=== PATIENT | female | born 1975 | race Caucasian/White ===

== ENCOUNTER 2017-04-02 19:37 | Inpatient (IN) | payer MEDICAID ==
[2017-04-02 19:38] VITALS: BMI 38.4
--- NOTE | 2017-04-02 20:10 | C.PDOC ---
History Of Present Illness Patient presents to the ER with a complaint of dizziness and spinning sensation that worsens with head movements when either laying down or standing up. Patient denies any vision changes, nausea, vomiting, or trauma. Time Seen by Provider: 04/02/17 20:10 Chief Complaint (Nursing): Dizziness/Lightheaded History Per: Patient History/Exam Limitations: no limitations Onset/Duration Of Symptoms: Hrs Current Symptoms Are (Timing): Still Present Number Of Syncopal Episodes: 1 Activity At Onset Of Symptoms: Standing Associated Symptoms Preceding Syncopal Episode: Lightheadedness, Vertigo, Vertigo Worse With Change In Head Position Seizure Or Post-ictal Symptoms: None Severity: Mild Pain Scale Rating Of: 2 Recent travel outside of the [place]: No - Symptoms Of CVA Associated Symptoms: denies: Impaired Speech, Seizure Activity, New Vision Deficit(Left), New Vision Deficit(Right), Decreased Ability To Walk, New Confusion Recent Aspirin Use: No Current Coumadin Use?: No Recent Head Trauma: No Past Medical History Reviewed: Historical Data, Nursing Documentation, Vital Signs Vital Signs: Last Vital Signs Temp 98.4 F 04/02/17 19:47 Pulse 81 04/02/17 21:53 Resp 14 04/02/17 19:47 BP 147/82 04/02/17 19:47 Pulse Ox 99 04/02/17 21:40 - Medical History PMH: HTN (PRIOR TO BARIATRIC SX), Hypercholesterolemia, Pneumonia (jan 2014 never hospitalized) Surgical History: Cholecystectomy, Endoscopy - [facility] Procedures ESOPHAGOGASTRODUODENOSCOPY [EGD] W/CLOSED BIOPSY (03/30/14) LAPAROSCOPIC GASTROENTEROSTOMY (08/10/14) NEBULIZER THERAPY (03/30/14) OTHER GASTROSCOPY (08/10/14) Family History: States: No Known Family Hx - Social History Hx Tobacco Use: No Hx Alcohol Use: No Hx Substance Use: No - Immunization History Hx Tetanus Toxoid Vaccination: No Hx Influenza Vaccination: No Hx Pneumococcal Vaccination: No Review Of Systems Eyes: Negative for: Vision Change ENT: Negative for: Throat Pain Cardiovascular: Negative for: Chest Pain Respiratory: Negative for: Shortness of Breath Gastrointestinal: Negative for: Nausea, Vomiting Genitourinary: Negative for: Dysuria Musculoskeletal: Negative for: Back Pain Skin: Negative for: Rash, Lesions, Jaundice, Bruising Neurological: Positive for: Dizziness, Other (Spinning sensation). Negative for : Weakness Psych: Negative for: Anxiety Physical Exam - Physical Exam Appears: Well, Non-toxic Skin: Warm, Dry Head: Atraumatic Eye(s): bilateral: Normal Inspection, PERRL, EOMI, Other (No nystagmus) Ear(s): Bilateral: Other (No acute abnormalities) Oral Mucosa: Moist Neck: Supple Chest: Symmetrical, No Tenderness Cardiovascular: Rhythm Regular Respiratory: No Rales, No Rhonchi, No Wheezing Gastrointestinal/Abdominal: Soft, No Tenderness, No Distention Rectal: Normal Exam (done after the HB results), Heme Negative Extremity: Normal ROM Extremity: Bilateral: Atraumatic, Normal Color And Temperature Neurological/Psych: Oriented x3, Normal Speech, Normal Cognition, No Romberg, Other (No focal deficits.) Gait: Unsteady ED Course And Treatment - Laboratory Results Result Diagrams: 04/02/17 20:40 04/02/17 20:40 O2 Sat by Pulse Oximetry: 99 (Room air) Pulse Ox Interpretation: Normal Progress Note: Head CT w/o contrast, urinalysis, and blood work ordered. Antivert PO, zofran IVP, and IV fluids administered. upon speaking with the pt about her hb of 7, pt states she does have very heavy periods, and that yesterday almost passed out., No cp or palpitations. HEr dizziness gets worse during her menses Disposition Discussed With DrCeleste: Calderon Morales Jr. Comment: accepted the pt on his service and took over the care at 10:40PM Doctor Will See Patient In The: ED Counseled Patient/Family Regarding: Studies Performed, Diagnosis - Disposition Disposition: HOSPITALIZED Disposition Time: 20:10 Condition: FAIR - POA Present On Arrival: None - Clinical Impression Clinical Impression: Dizziness, Syncope, Dysfunctional uterine bleeding - Scribe Statement The provider has reviewed the documentation as recorded by the Scribe Thomas Cardenas All medical record entries made by the Scribe were at my direction and personally dictated by me. I have reviewed the chart and agree that the record accurately reflects my personal performance of the history, physical exam, medical decision making, and the department course for this patient. I have also personally directed, reviewed, and agree with the discharge instructions and disposition. Decision To Admit - Pt Status Changed To: Hospital Disposition Of: Inpatient - Admit Certification Admit to Inpatient:: After my assessment, the patient will require hospitalization for at least two midnights. This is because of the severity of symptoms shown, intensity of services needed, and/or the medical risk in this patient being treated as an outpatient. - InPatient: Physician Admission Certification: I certify that this patient requires 2 or more midnights of care for the following reason:: After my assessment, the patient will require hospitalization for at least two midnights. This is because of the severity of symptoms shown, intensity of services needed, and/or the medical risk in this patient being treated as an outpatient. - . Bed Request Type: Telemetry Admitting Physician: Calderon Morales Jr. Patient Diagnosis: Dizziness, Syncope, Dysfunctional uterine bleeding
[2017-04-02] MEDS ORDERED: Sodium Chloride 0.9% 1,000 ML IV ONE (20:22)
[2017-04-02] MEDS ORDERED: Sodium Chloride 0.9% 1,000 ML ONE (20:31)
[2017-04-02 20:48] LABS: BASO % 0.3 % (0.0-2.0); EOS # 0.1 K/uL (0.0-0.7); EOS % 1.3 % (0.0-4.0); HEMATOCRIT 25.2 % (34.0-47.0); LYMPH # 2.4 K/uL (1.0-4.3); LYMPH % 30.5 % (20.0-40.0); MEAN CORPUSCULAR HEMOGLOBIN 15.8 pg (27.0-31.0); MONO # 0.7 K/uL (0.0-0.8); MONO % 9.4 % (0.0-10.0); RED CELL DISTRIBUTION WIDTH 19.5 % (11.5-14.5); WHITE BLOOD COUNT 7.7 K/uL (4.8-10.8)
[2017-04-02 20:55] LABS: CHLORIDE 101 mmol/L (98-107); POTASSIUM 3.7 mmol/L (3.6-5.2); SODIUM 137 mmol/L (132-148)
[2017-04-02 20:58] LABS: CARBON DIOXIDE 26 mmol/L (22-30); GFR AFRICAN-AMERICAN > 60
[2017-04-02 20:59] LABS: BLOOD UREA NITROGEN 13 mg/dL (7-17); CALCIUM 9.1 mg/dl (8.6-10.4); GLUCOSE,RANDOM 88 mg/dL (65-105)
[2017-04-02 21:02] LABS: MEAN CELL VOLUME 56.4 fL (81.0-99.0)
[2017-04-02 21:14] LABS: RBC URINE 14 /hpf (0-3); URINE BACTERIA MOD (<OCC); URINE BILIRUBIN NEGATIVE (NEGATIVE); URINE BLOOD NEGATIVE (NEGATIVE); URINE COLOR Straw (YELLOW); URINE GLUCOSE (UA) NORMAL (Normal); URINE KETONE NEGATIVE (NEGATIVE); URINE LEUKOCYTE ESTERASE 3+ Leu/uL (Negative); URINE PROTEIN NEGATIVE (NEGATIVE); URINE UROBILINOGEN NORMAL mg/dL (0.2-1.0); WBC URINE 24 /hpf (0-5)
--- NOTE | 2017-04-02 23:15 | CP.PCM.HP ---
History of Present Illness - History of Present Illness History of Present Illness: CC: Dizziness/Lightheaded HPI: 41F with PMHx Vertigo, HTN, HLD, DM - presents c/o a syncopal episode yesterday 04/01, with persistent headache, light headedness, and dizziness since syncopizing. She was cleaning her friends apartment, felt very dizzy upon standing, and 1 minute later began to feel lightheaded/weak, causing her to "faint." Her friend witnessed this, told her she was unresponsive for 2-3 minutes, and did not seize, shake, or hit her head. After awakening, she had a headache, lightheadedness, and dizziness, all which have persisted. At that time she was not diaphoretic and did not feel as if the room was spinning. This morning, she began to feel nauseous due to the dizziness. 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 She denies change in vision, impaired speech, seizure, confusion, f/c, trauma, diaphoresis, chest pain, palpitations, SOB, vomiting, d/c, recent travel or sick contacts. She also c/o persistent burning with urination for 1 month, treated by her supervisor ac[employer]ical tile carpent[employer] at that time with antibiotics, however it is unresolved. She denies frequent or recurrent UTI's. Her LMP was 03/08/17 and she reports a history of heavy flow. PMHx: Vertigo, HTN, HLD, DM, Pneumonia (jan 2014 never hospitalized) PSHx: Cholecystectomy '07, Endoscopy '14, Bunionectomy '13 Meds: none Allergies: Codeine (passes out), carrots FamHx: Mom- HTN, DM, HLD; Dad- of [place] at young age SocHx: Denies alcohol, tobacco, illicit drug use; Lives in apartment with family ; Works in inventory at a store PMD: Dr. Morales Present on Admission - Present on Admission Any Indicators Present on Admission: No Review of Systems - Constitutional Constitutional: Headache, Weakness. absent: Chills, Excessive Sweating, Fever - EENT Eyes: absent: Blurred Vision, Change in Vision Ears: Disequilibrium, Dizziness. absent: Ear Discharge, Ear Pain Nose/Mouth/Throat: absent: Nasal Congestion, Nasal Discharge - Cardiovascular Cardiovascular: absent: Chest Pain, Chest Pain at Rest, Diaphoresis, Dyspnea - Respiratory Respiratory: absent: Cough, Dyspnea, Hemoptysis, Dyspnea on Exertion - Gastrointestinal Gastrointestinal: absent: Cramping, Diarrhea, Dyspepsia, Hematochezia - Genitourinary Genitourinary: Dysuria. absent: Difficulty Urinating, Pyuria, Freq UTI - Reproductive: Female Reproductive:Female: Heavy Menses - Musculoskeletal Musculoskeletal: absent: Arthralgias, Back Pain, Numbness, Tingling - Integumentary Integumentary: absent: Bleeding Lesions, Change in Hair - Neurological Neurological: absent: Abnormal Gait, Abnormal Hearing - Psychiatric Psychiatric: absent: Anhedonia, Anxiety - Endocrine Endocrine: absent: Polydipsia, Polyphagia, Polyuria - Hematologic/Lymphatic Hematologic: absent: Easy Bleeding, Easy Bruising Past Patient History - Infectious Disease Hx of Infectious Diseases: None - Past Medical History & Family History Past Medical History?: Yes - Past Social History Smoking Status: Never Smoked - CARDIAC Hx Hypercholesterolemia: Yes Hx Hypertension: Yes (PRIOR TO BARIATRIC SX) - PULMONARY Hx Pneumonia: Yes (jan 2014 never hospitalized) - NEUROLOGICAL Hx Neurological Disorder: No - HEENT Hx HEENT Problems: No - RENAL Hx Chronic Kidney Disease: No - ENDOCRINE/METABOLIC Hx Endocrine Disorders: No - HEMATOLOGICAL/ONCOLOGICAL Hx Blood Disorders: No - INTEGUMENTARY Hx Dermatological Problems: No - MUSCULOSKELETAL/RHEUMATOLOGICAL Hx Falls: No - GASTROINTESTINAL Hx Gastrointestinal Disorders: Yes Hx Gastroesophageal Reflux: Yes - GENITOURINARY/GYNECOLOGICAL Hx Genitourinary Disorders: Yes Other/Comment: irregular menses - PSYCHIATRIC Hx Substance Use: No - SURGICAL HISTORY Hx Cholecystectomy: Yes - ANESTHESIA Hx Anesthesia Reactions: Yes (vomitting) Meds Allergies/Adverse Reactions: Allergies Allergy/AdvReac Type Severity Reaction Status Date / Time codeine Allergy Verified 04/02/17 19:50 CARROTS Allergy RASH Uncoded 10/23/15 09:38 Physical Exam - Constitutional Appears: Non-toxic, No Acute Distress - Head Exam Head Exam: ATRAUMATIC, NORMAL INSPECTION - Eye Exam Eye Exam: EOMI, Normal appearance, PERRL - ENT Exam ENT Exam: Mucous Membranes Moist - Respiratory Exam Respiratory Exam: Clear to Auscultation Bilateral, NORMAL BREATHING PATTERN. absent: Wheezes - Cardiovascular Exam Cardiovascular Exam: REGULAR RHYTHM, +S1, +S2 - GI/Abdominal Exam GI & Abdominal Exam: Normal Bowel Sounds, Soft. absent: Distended, Firm, Tenderness Additional comments: well healed scars from laparoscopic surgery - Exam Exam: absent: Bladder Distension - Extremities Exam Extremities exam: Positive for: normal inspection. Negative for: pedal edema, tenderness - Back Exam Back exam: NORMAL INSPECTION. absent: CVA tenderness (L), CVA tenderness (R) - Neurological Exam Neurological exam: Alert, CN II-XII Intact, Oriented x3, Reflexes Normal Additional comments: -mildly unsteady gate -negative rhomberg - Psychiatric Exam Psychiatric exam: Normal Affect, Normal Mood - Skin Skin Exam: Dry, Intact, Normal Color, Warm Results - Vital Signs Recent Vital Signs: Last Vital Signs Temp 98.4 F 04/02/17 19:47 Pulse 81 04/02/17 21:53 Resp 14 04/02/17 19:47 BP 147/82 04/02/17 19:47 Pulse Ox 99 04/02/17 22:43 - Labs Result Diagrams: 04/02/17 20:40 04/02/17 20:40 Labs: Laboratory Results - last 24 hr 04/02/17 04/02/17 04/02/17 20:40 20:40 20:40 WBC 7.7 RBC 4.47 Hgb 7.1 L D Hct 25.2 L MCV 56.4 L D MCH 15.8 L MCHC 28.0 L RDW 19.5 H Plt Count 283 MPV 9.0 Neut % (Auto) 58.5 Lymph % (Auto) 30.5 Rutherford % (Auto) 9.4 Eos % (Auto) 1.3 Baso % (Auto) 0.3 Neut # 4.5 Lymph # 2.4 Rutherford # 0.7 Eos # 0.1 Baso # 0.0 Sodium 137 Potassium 3.7 Chloride 101 Carbon Dioxide 26 Anion Gap 14 BUN 13 Creatinine 0.7 Est GFR ( Amer) > 60 Est GFR (Non-Af Amer) > 60 Random Glucose 88 Calcium 9.1 Urine Color Straw Urine Clarity Hazy Urine pH 5.0 Ur Specific Katy 1.003 Urine Protein Negative Urine Glucose (UA) Normal Urine Ketones Negative Urine Blood Negative Urine Nitrate Negative Urine Bilirubin Negative Urine Urobilinogen Normal Ur Leukocyte Esterase 3+ H Urine WBC (Auto) 24 H Urine RBC (Auto) 14 H Ur Squamous Epith Cells 8 H Urine Bacteria Mod H Urine HCG, Qual Negative Stool Occult Blood 04/02/17 21:50 WBC RBC Hgb Hct MCV MCH MCHC RDW Plt Count MPV Neut % (Auto) Lymph % (Auto) Rutherford % (Auto) Eos % (Auto) Baso % (Auto) Neut # Lymph # Rutherford # Eos # Baso # Sodium Potassium Chloride Carbon Dioxide Anion Gap BUN Creatinine Est GFR ( Amer) Est GFR (Non-Af Amer) Random Glucose Calcium Urine Color Urine Clarity Urine pH Ur Specific Kat[place] Urine Protein Urine Glucose (UA) Urine Ketones Urine Blood Urine Nitrate Urine Bilirubin Urine Urobilinogen Ur Leukocyte Esterase Urine WBC (Auto) Urine RBC (Auto) Ur Squamous Epith Cells Urine Bacteria Urine HCG, Qual Stool Occult Blood Negative Assessment & Plan - Assessment and Plan (Free Text) Assessment: Syncope -Patient reports a history of untreated Vertigo, diagnosed by neurology in 2009. -CT Head - negative -f/u EKG Vertigo -Patient reports a history of untreated Vertigo, diagnosed by neurology in 2009. -Dizziness resolved after Meclizine 50mg in ED. -HOLD Meclizine 25mg PO qd until further assessment. -Fall precautions. Anemia -Hgb 7.1 -f/u Fe, TIBC, %sat, ferritin, B12, folate -f/u CT Abd/Pelv w/contrast -Stool occult negative Menorrhagia -pt reports a long standing history of heavy menstrual flow -see's her supervisor ac[employer]ical tile carpent[employer] regularly -likely cause of anemia UTI -Dysuria [id number], however no suprapubic tenderness -UA: 3+leuk est, 24WBC, 14RBC, 8sq epithelial cells, bact moderate -f/u Urine Culture -Start Rocephin 1Gm IVPB qd after UC. Hx Hypokalemia -K 3.7 on admission -Patient reports taking Potassium 50mg PO qd -Start Kdur 40mg PO qd Hx Diabetes -controlled via diet/exercise s/p bariatric surgery '14 -f/u A1c Hx Hypertension -BP 147/82 on admission. -controlled via diet/exercise s/p bariatric surgery '14 -Pt does not take medication. -f/u TSH, free T4, Vit D Hx Hyperlipidemia -controlled via diet/exercise s/p bariatric surgery ' -f/u lipid panel Prophylaxis -SCDs -VTE prophylaxis C/I -Pepcid 40mg PO qd -Zofran 4mg IVP Q8H PRN nausea - Date & Time Date: 04/02/17 Time: 23:20
[2017-04-03] MEDS ORDERED: Iohexol 350mg/ml 100 ML ONE (00:44)
[2017-04-03 00:56] LABS: IRON 32 ug/dL (37-170); TOTAL PROTEIN 6.9 g/dL (6.3-8.3)
[2017-04-03 00:57] LABS: BILIRUBIN,DIRECT 0.5 mg/dL (0.0-0.4); BILIRUBIN,TOTAL 0.7 mg/dL (0.2-1.3); MAGNESIUM 1.9 mg/dL (1.6-2.3); PHOSPHOROUS 3.2 mg/dL (2.5-4.5)
[2017-04-03 01:35] LABS: THYROID STIMULATING HORMONE 2.79 mIU/L (0.46-4.68)
[2017-04-03 02:09] LABS: FOLATE 18.4 ng/mL
--- NOTE | 2017-04-03 03:58 | CT ---
EXAM: CT Abdomen and Pelvis With Intravenous Contrast CLINICAL HISTORY: 41 years old, female; Pain; Abdominal pain; Prior surgery; Additional info: Hb 7, menometrorhagia TECHNIQUE: Axial computed tomography images of the abdomen and pelvis with intravenous contrast. This CT exam was performed using one or more of the following dose reduction techniques: automated exposure control, adjustment of the mA and/or kV according to patient size, and/or use of iterative reconstruction technique. Coronal and sagittal reformatted images were created and reviewed. CONTRAST: 100 mL of [id number] administered intravenously. EXAM DATE/TIME: 04/03/2017 12:21 AM COMPARISON: No relevant prior studies available. FINDINGS: Cholecystectomy clips are present. The liver is normal. The spleen is normal. The pancreas is normal. No hydronephrosis or perinephric stranding. Evidence of gastric surgery. Moderate amount of stool within the right colon. No evidence of appendicitis. There is a round 2 cm hypodense structure in the endometrial cavity. It may represent a focal hematoma. Enhancing endometrial mass would also be possible such as pedunculated fibroid. Ovarian follicles are noted more prominent on the left. No significant free fluid. IMPRESSION: Rounded hyperdense structure in the endometrial cavity as above that could be better evaluated with pelvic ultrasound.
[2017-04-03 07:30] LABS: BASO % 0.6 % (0.0-2.0); EOS # 0.1 K/uL (0.0-0.7); EOS % 1.9 % (0.0-4.0); HEMATOCRIT 23.6 % (34.0-47.0); LYMPH # 2.5 K/uL (1.0-4.3); LYMPH % 45.2 % (20.0-40.0); MEAN CELL VOLUME 56.3 fL (81.0-99.0); MEAN CORPUSCULAR HGB CONC 28.4 g/dL (33.0-37.0); MEAN PLATELET VOLUME 9.1 fL (7.2-11.7); MONO # 0.6 K/uL (0.0-0.8); MONO % 10.3 % (0.0-10.0); NRBC % 0.1 % (0.0-2.0); RED CELL DISTRIBUTION WIDTH 19.6 % (11.5-14.5); WHITE BLOOD COUNT 5.5 K/uL (4.8-10.8)
[2017-04-03 07:53] LABS: CHLORIDE 104 mmol/L (98-107); SODIUM 138 mmol/L (132-148)
[2017-04-03 07:54] LABS: POTASSIUM 3.8 mmol/L (3.6-5.2)
[2017-04-03 07:55] LABS: GFR AFRICAN-AMERICAN > 60
[2017-04-03 07:56] LABS: ALKALINE PHOSPHATASE 61 U/L (38-126); AST/SGOT 22 U/L (14-36); BILIRUBIN,TOTAL 0.6 mg/dL (0.2-1.3); CARBON DIOXIDE 25 mmol/L (22-30); TOTAL PROTEIN 6.6 g/dL (6.3-8.3)
[2017-04-03 07:57] LABS: ALT/SGPT 22 U/L (9-52); BLOOD UREA NITROGEN 9 mg/dL (7-17); CALCIUM 8.3 mg/dl (8.6-10.4); GLUCOSE,RANDOM 80 mg/dL (65-105); PHOSPHOROUS 3.5 mg/dL (2.5-4.5)
--- NOTE | 2017-04-03 08:15 | CT ---
PROCEDURE: CT HEAD WITHOUT CONTRAST. HISTORY: dizziness COMPARISON: None available. TECHNIQUE: Axial computed tomography images were obtained through the head/brain without intravenous contrast. Radiation dose: Total exam DLP = 747 mGy-cm. This CT exam was performed using one or more of the following dose reduction techniques: Automated exposure control, adjustment of the mA and/or kV according to patient size, and/or use of iterative reconstruction technique. FINDINGS: HEMORRHAGE: No intracranial hemorrhage. BRAIN: No mass effect or edema. No atrophy or chronic microvascular ischemic changes. VENTRICLES: Unremarkable. No hydrocephalus. CALVARIUM: Unremarkable. PARANASAL SINUSES: Unremarkable as visualized. No significant inflammatory changes. MASTOID AIR CELLS: Unremarkable as visualized. No inflammatory changes. OTHER FINDINGS: None. IMPRESSION: No acute intracranial abnormality. If focal neurologic deficit persists, consider MRI. These findings were preliminarily reported at 10:13 p.m. on 04/02/[address] Alfonzo Erickson from [facility].
[2017-04-03 08:35] VITALS: O2SAT 98
[2017-04-03] MEDS ORDERED: Ferric Sodium Gluconat Complex 62.5 mg/5 ml Vial IVPB SCH (10:00)
[2017-04-03] MEDS ORDERED: Potassium Chloride 20 mEq ER Tab PO SCH (10:00)
--- NOTE | 2017-04-03 10:45 | CP.PCM.PN ---
<JemmasunshineJeff simons - Last Filed: 04/03/17 12:25> Subjective - Date & Time of Evaluation Date of Evaluation: 04/03/17 Time of Evaluation: 07:00 - Subjective Subjective: PGY-1 Medicine Progress Note for Dr. Morales Patient seen and examined at bedside. No acute event overnight. Patient is lying in bed comfortably. Patient is a Jehovah witness, so she is refusing all blood products. She states her dizziness has improved. She is tolerating diet. IV ferrlicet started for anemia. Denies fever/chills, cp, sob, palpitations, abd pain, n/v/d. Objective - Vital Signs/Intake and Output Vital Signs (last 24 hours): Temp Pulse Resp BP Pulse Ox 97.7 F 70 18 103/65 98 04/03/17 08:33 04/03/17 08:33 04/03/17 08:33 04/03/17 08:33 04/03/17 08:33 Intake and Output: 04/03/17 04/03/17 06:59 18:59 Intake Total 1500 Balance 1500 - Medications Medications: Current Medications Famotidine (Pepcid) 40 mg PO DAILY [facility] Last Admin: 04/03/17 10:01 Dose: 40 mg Ferric Sodium Gluconate Complex (Ferrlecit) 125 mg IVPB DAILY [facility] Stop: 04/11/17 10:01 Ceftriaxone Sodium 1 gm/ (Sodium Chloride) 100 mls @ 100 mls/hr IVPB DAILY [facility] Last Admin: 04/03/17 10:00 Dose: 100 mls/hr Meclizine HCl (Antivert) 25 mg PO DAILY [facility] Ondansetron HCl (Zofran Inj) 4 mg IVP Q8H PRN PRN Reason: Nausea/Vomiting - Labs Labs: 04/03/17 07:23 04/03/17 07:23 - Constitutional Appears: No Acute Distress - Head Exam Head Exam: ATRAUMATIC, NORMOCEPHALIC - Eye Exam Eye Exam: EOMI, Normal appearance Pupil Exam: PERRL - ENT Exam ENT Exam: Mucous Membranes Moist - Neck Exam Neck Exam: Normal Inspection - Respiratory Exam Respiratory Exam: Clear to Ausculation Bilateral, NORMAL BREATHING PATTERN - Cardiovascular Exam Cardiovascular Exam: REGULAR RHYTHM, +S1, +S2 - GI/Abdominal Exam GI & Abdominal Exam: Soft, Normal Bowel Sounds. absent: Tenderness Additional comments: healed scars from previous laparoscopic surgery - Extremities Exam Extremities Exam: absent: Calf Tenderness, Pedal Edema - Back Exam Back Exam: absent: CVA tenderness (L), CVA tenderness (R) - Neurological Exam Neurological Exam: Abnormal Gait, Alert, Awake, CN II-XII Intact, Oriented x3 Additional comments: slightly unsteady gait negative rhomberg sign - Psychiatric Exam Psychiatric exam: Normal Affect, Normal Mood - Skin Skin Exam: Dry, Intact, Warm Assessment and Plan - Assessment and Plan (Free Text) Plan: Syncope Patient reports a history of untreated Vertigo, diagnosed by neurology in 2009. CT Head: negative (see full report) EKG Vertigo Patient reports a history of untreated Vertigo, diagnosed by neurology in 2009. Dizziness resolved after Meclizine 50mg in ED. HOLD Meclizine 25mg PO daily Fall precautions Anemia Hgb 7.1 --> 6.7 Refusing transfusions, patient is jehovah witness Ferrlicet 125 mg IVPB daily Fe 32, TIBC 439, %sat 7, ferritin 6.3, B12 424, folate 18.4 CT Abd/Pelv: Rounded hyperdense structure in the endometrial cavity as above that could be better evaluated with pelvic ultrasound (see full report) Stool occult negative Pelvic/Transvaginal US if patient recent outpatient US is not helpful vamp seamer consult, Dr. Hong, help appreciated Menorrhagia pt reports a long standing history of heavy menstrual flow, likely cause of anemia CT Abd/Pelv: Rounded hyperdense structure in the endometrial cavity as above that could be better evaluated with pelvic ultrasound (see full report) vamp seamer Consult, Dr. Hong, help appreciated UTI Dysuria [id number], however no suprapubic tenderness UA: 3+leuk est, 24WBC, 14RBC, 8sq epithelial cells, bact moderate f/u Urine Culture Rocephin 1Gm IVPB daily Hx Hypokalemia K 3.7 on admission Patient reports taking Potassium 50mg PO qd Start Kdur 40mg PO qd Hx Diabetes controlled via diet/exercise s/p bariatric surgery HA1c 5.9 Hx Hypertension controlled via diet/exercise s/p bariatric surgery Pt does not take medication. TSH 2.79 free T4 1.21 Vit D 24.5 Hx Hyperlipidemia controlled via diet/exercise s/p bariatric surgery '14 lipid panel tryglycerides 147 total 147, LDL 69, HDL 58 Prophylaxis SCDs VTE prophylaxis C/I Pepcid 40mg PO qd Zofran 4mg IVP Q8H PRN nausea <Calderon Morales Jr. - Last Filed: 04/06/17 11:22> Objective - Vital Signs/Intake and Output Vital Signs (last 24 hours): Temp Pulse Resp BP Pulse Ox 98.2 F 79 20 121/77 98 04/03/17 15:00 04/03/17 15:00 04/03/17 15:00 04/03/17 15:00 04/03/17 15:00 - Labs Labs: 04/03/17 07:23 04/03/17 07:23 Attending/Attestation - Attestation I have personally seen and examined this patient.: Yes I have fully participated in the care of the patient.: Yes I have reviewed all pertinent clinical information, including history, physical exam and plan: Yes Notes (Text): 04/06/17 11:22 Agree with resident note and findings
--- NOTE | 2017-04-03 11:55 | CP.PCM.PN ---
Subjective - Date & Time of Evaluation Date of Evaluation: 04/03/17 Time of Evaluation: 11:20 - Subjective Subjective: CC: Dizziness/Lightheaded HPI: 41F with PMHx Vertigo, HTN, HLD, DM - presents c/o a syncopal episode yesterday 04/01, with persistent headache, light headedness, and dizziness since syncopizing. She was cleaning her friends apartment, felt very dizzy upon standing, and 1 minute later began to feel lightheaded/weak, causing her to "faint." Her friend witnessed this, told her she was unresponsive for 2-3 minutes, and did not seize, shake, or hit her head. After awakening, she had a headache, lightheadedness, and dizziness, all which have persisted. At that time she was not diaphoretic and did not feel as if the room was spinning. This morning, she began to feel nauseous due to the dizziness. 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 She denies change in vision, impaired speech, seizure, confusion, f/c, trauma, diaphoresis, chest pain, palpitations, SOB, vomiting, d/c, recent travel or sick contacts. She also c/o persistent burning with urination for 1 month, treated by her business support administrator at that time with antibiotics, however it is unresolved. She denies frequent or recurrent UTI's. Her LMP was 03/08/17 and she reports a history of heavy flow. 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 Morales Objective - Vital Signs/Intake and Output Vital Signs (last 24 hours): Temp Pulse Resp BP Pulse Ox 97.7 F 70 18 103/65 98 04/03/17 08:33 04/03/17 08:33 04/03/17 08:33 04/03/17 08:33 04/03/17 08:33 Intake and Output: 04/03/17 04/03/17 06:59 18:59 Intake Total 1500 Balance 1500 - Medications Medications: Current Medications Docusate Sodium (Colace) 100 mg PO TID [facility] Famotidine (Pepcid) 40 mg PO DAILY [facility] Last Admin: 04/03/17 10:01 Dose: 40 mg Ferric Sodium Gluconate Complex (Ferrlecit) 125 mg IVPB DAILY [facility] Stop: 04/11/17 10:01 Last Admin: 04/03/17 11:14 Dose: 125 mg Ceftriaxone Sodium 1 gm/ (Sodium Chloride) 100 mls @ 100 mls/hr IVPB DAILY [facility] Last Admin: 04/03/17 10:00 Dose: 100 mls/hr Meclizine HCl (Antivert) 25 mg PO DAILY [facility] Ondansetron HCl (Zofran Inj) 4 mg IVP Q8H PRN PRN Reason: Nausea/Vomiting - Labs Labs: 04/03/17 07:23 04/03/17 07:23
--- NOTE | 2017-04-03 12:04 | CP.PCM.CON ---
History of Present Illness - History of Present Illness History of Present Illness: OBGYN consult note for Dr. Hong: [facility] [place] for vaginal bleeding and endometrial mass: 41 year old female with PMHx Vertigo, HTN, HLD, DM - presented 5/ with a syncopal episode. Her hbg was low on admission and is 6.7 today. She is refusing to have a blood transfusion because she is a Jehovahs Witness. She has a history of heavy irregular bleeding which she follows up with her outpatient OBGYN Dr. Mahan on a regular basis. Last visit was one month ago. She had a transvaginal ultrasound done at this time but does not yet know the results. She denies current vaginal bleeding. She also states she was told that she might have an ovarian cyst but nothing in/on the uterus. She was on control pills in the past and had 3 D/Cs for her heavy menstrual bleeding which has improved. She admits to mild clear/white vaginal discharge with vaginal itching. She states she was recneelt yon antibiotic for 7 days for another vaginal infection which cleared after taking this medication. She does not remember the name of that antibiotic. GYNHx: LMP was 03/08/17. Menarche at 11 years of age, Always irregular could occur every couple of months and last anywhere from 3 weeks to over a month associated with heavy bleeding. 3 D/C (2008, 2010, last date unsure) Was on control pills until 2 years ago when her periods because more regular but still heavy. No history of STIs. Last pap 2 years ago and was normal. She states she recently had a vaginal infection/discharge and was given oral antibiotic for 7 days but can't remember the name. The infection resolved. OBHx: , never been , no abortions, ectopics, miscarriages PMHx: Vertigo, HTN, HLD, DM, Pneumonia (jan 2014 never hospitalized) PSHx: Cholecystectomy ', Endoscopy , Bunionectomy ', Barriatric Surgery Meds: none Allergies: Codeine (passes out), carrots FamHx: Mom- HTN, DM, HLD; Dad- of [place] at young age SocHx: Denies alcohol, tobacco, illicit drug use; Lives in apartment with family ; Works in inventory at a store PMD: Dr. Andrew GARCIA: Dr. Winnie Mahan Review of Systems - Genitourinary Genitourinary: Change in Urinary Stream, Dysuria. absent: Difficulty Urinating , Hematuria - Reproductive: Female Reproductive:Female: Currently Menstual, Menses >/= 8 Days, Menses Variable, Heavy Menses, Vaginal Discharge, Vaginal Pruritis. absent: Vaginal Odor Past Patient History - Infectious Disease Hx of Infectious Diseases: None - Past Medical History & Family History Past Medical History?: Yes - Past Social History Smoking Status: Never Smoked - CARDIAC Hx Cardiac Disorders: Yes Hx Hypercholesterolemia: Yes Hx Hypertension: Yes (PRIOR TO BARIATRIC SX) - PULMONARY Hx Respiratory Disorders: Yes Hx Pneumonia: Yes (jan 2014 never hospitalized) - NEUROLOGICAL Hx Neurological Disorder: No - HEENT Hx HEENT Problems: No - RENAL Hx Chronic Kidney Disease: No - ENDOCRINE/METABOLIC Hx Endocrine Disorders: No - HEMATOLOGICAL/ONCOLOGICAL Hx Blood Disorders: No - INTEGUMENTARY Hx Dermatological Problems: No - MUSCULOSKELETAL/RHEUMATOLOGICAL Hx Musculoskeletal Disorders: No Hx Falls: No - GASTROINTESTINAL Hx Gastrointestinal Disorders: Yes Hx Gastroesophageal Reflux: Yes - GENITOURINARY/GYNECOLOGICAL Hx Genitourinary Disorders: Yes Other/Comment: irregular menses, rashes over labia majora and labia minora X 2 mos. - PSYCHIATRIC Hx Substance Use: No - SURGICAL HISTORY Hx Surgeries: Yes Hx Cholecystectomy: Yes - ANESTHESIA Hx Anesthesia: Yes Hx Anesthesia Reactions: No Hx Malignant Hyperthermia: No Meds Allergies/Adverse Reactions: Allergies Allergy/AdvReac Type Severity Reaction Status Date / Time codeine Allergy Verified 04/02/17 19:50 CARROTS Allergy RASH Uncoded 10/23/15 09:38 - Medications Medications: Current Medications Docusate Sodium (Colace) 100 mg PO TID [facility] Famotidine (Pepcid) 40 mg PO DAILY [facility] Last Admin: 04/03/17 10:01 Dose: 40 mg Ferric Sodium Gluconate Complex (Ferrlecit) 125 mg IVPB DAILY [facility] Stop: 04/11/17 10:01 Last Admin: 04/03/17 11:14 Dose: 125 mg Ceftriaxone Sodium 1 gm/ (Sodium Chloride) 100 mls @ 100 mls/hr IVPB DAILY [facility] Last Admin: 04/03/17 10:00 Dose: 100 mls/hr Meclizine HCl (Antivert) 25 mg PO DAILY MIC Ondansetron HCl (Zofran Inj) 4 mg IVP Q8H PRN PRN Reason: Nausea/Vomiting Physical Exam - Constitutional Appears: Non-toxic, No Acute Distress - Head Exam Head Exam: ATRAUMATIC, NORMAL INSPECTION - Respiratory Exam Respiratory Exam: Clear to Auscultation Bilateral. absent: NORMAL BREATHING PATTERN - Cardiovascular Exam Cardiovascular Exam: REGULAR RHYTHM, +S1, +S2 - GI/Abdominal Exam GI & Abdominal Exam: Normal Bowel Sounds, Soft. absent: Distended, Firm, Guarding, Tenderness - Exam Speculum exam: Vaginal Discharge. absent: Vaginal Bleeding Bimanual exam: absent: Cervical Motion Tendernes, Uterine Tenderness Additional comments: Clear/white vaginal discharge noted, no odor present, no bleeding, no lesions or masses palpate. Cervix non tended, closed - Extremities Exam Extremities exam: Positive for: normal inspection - Back Exam Back exam: NORMAL INSPECTION. absent: CVA tenderness (L), CVA tenderness (R), paraspinal tenderness - Neurological Exam Neurological exam: Alert, Oriented x3 - Psychiatric Exam Psychiatric exam: Normal Affect, Normal Mood Results - Vital Signs Recent Vital Signs: Last Vital Signs Temp 97.7 F 04/03/17 08:33 Pulse 70 04/03/17 08:33 Resp 18 04/03/17 08:33 BP 103/65 04/03/17 08:33 Pulse Ox 98 04/03/17 08:33 - Labs Result Diagrams: 04/03/17 07:23 04/03/17 07:23 Labs: Laboratory Results - last 24 hr 04/03/17 04/03/17 04/03/17 00:11 00:11 00:11 WBC RBC Hgb Hct MCV MCH MCHC RDW Plt Count MPV Neut % (Auto) Lymph % (Auto) [place] % (Auto) Eos % (Auto) Baso % (Auto) Neut # Lymph # [place] # Eos # Baso # Sodium Potassium Chloride Carbon Dioxide Anion Gap BUN Creatinine Est GFR ( Amer) Est GFR (Non-Af Amer) Random Glucose Hemoglobin A1c 5.9 Calcium Phosphorus 3.2 Magnesium 1.9 Iron 32 L TIBC 439 % Saturation 7 L Ferritin 6.3 Total Bilirubin 0.7 Direct Bilirubin 0.5 H AST 30 ALT 16 Alkaline Phosphatase 65 Total Protein 6.9 Albumin 3.5 Globulin 3.4 Albumin/Globulin Ratio 1.0 Triglycerides 53 D Cholesterol 147 LDL Cholesterol Direct 69 HDL Cholesterol 58 Vitamin B12 424 25-OH Vitamin D Total Folate 18.4 Free T4 TSH 3rd Generation 2.79 04/03/17 04/03/17 04/03/17 00:11 00:11 07:23 WBC 5.5 RBC 4.19 Hgb 6.7 L Hct 23.6 L MCV 56.3 L MCH 16.0 L MCHC 28.4 L RDW 19.6 H Plt Count 250 MPV 9.1 Neut % (Auto) 42.0 L Lymph % (Auto) 45.2 H [place] % (Auto) 10.3 H Eos % (Auto) 1.9 Baso % (Auto) 0.6 Neut # 2.3 Lymph # 2.5 [place] # 0.6 Eos # 0.1 Baso # 0.0 Sodium Potassium Chloride Carbon Dioxide Anion Gap BUN Creatinine Est GFR ( Amer) Est GFR (Non-Af Amer) Random Glucose Hemoglobin A1c Calcium Phosphorus Magnesium Iron TIBC % Saturation Ferritin Total Bilirubin Direct Bilirubin AST ALT Alkaline Phosphatase Total Protein Albumin Globulin Albumin/Globulin Ratio Triglycerides Cholesterol LDL Cholesterol Direct HDL Cholesterol Vitamin B12 25-OH Vitamin D Total 24.5 L Folate Free T4 1.21 TSH 3rd Generation 04/03/17 07:23 WBC RBC Hgb Hct MCV MCH MCHC RDW Plt Count MPV Neut % (Auto) Lymph % (Auto) [place] % (Auto) Eos % (Auto) Baso % (Auto) Neut # Lymph # [place] # Eos # Baso # Sodium 138 Potassium 3.8 Chloride 104 Carbon Dioxide 25 Anion Gap 13 BUN 9 Creatinine 0.7 Est GFR ( Amer) > 60 Est GFR (Non-Af Amer) > 60 Random Glucose 80 Hemoglobin A1c Calcium 8.3 L Phosphorus 3.5 Magnesium 2.0 Iron TIBC % Saturation Ferritin Total Bilirubin 0.6 Direct Bilirubin AST 22 ALT 22 Alkaline Phosphatase 61 Total Protein 6.6 Albumin 3.3 L Globulin 3.2 Albumin/Globulin Ratio 1.0 Triglycerides Cholesterol LDL Cholesterol Direct HDL Cholesterol Vitamin B12 25-OH Vitamin D Total Folate Free T4 TSH 3rd Generation Assessment & Plan - Assessment and Plan (Free Text) Assessment: 41 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 Hbg is 6.7 but is refusing transfusion due to jew reasons Patient had recent Ultrasound on March 07, 2017 ordered by her OBGYN - Dr. Estefani Mahan: showed no uterine mass, normal R ovary, L ovarian follicle ( Report was obtained from her office) Receiving IV Iron Endometrial Mass Abd/Pelvis CT - rounded hyperdense structure in endometrial cavity 2 cm Patient had recent Ultrasound on March 07, 2017 ordered by her OBGYN - Dr. Estefani Mahan: showed no uterine mass, normal R ovary, L ovarian follicle Will need outpatient follow up Vaginal Candidiasis Diflucan 150 mg PO x one dose No further intervention needed on this admission. Stable from OGYN perspective if patient is refusing blood due to jew preferences. Patient will need to follow up with Dr. Mahan outpatient for further intervention. Thank you for the consult
[2017-04-03 15:32] VITALS: BP 121/77; PULSE 79; RESP 20; TEMP 98.2
--- NOTE | 2017-04-03 17:25 | CP.PCM.DIS ---
Provider - Provider Date of Admission: 04/02/17 22:44 Attending physician: Calderon Morales Jr, MD Consults: ROTARY DRUM DYER: Hal Time Spent in preparation of Discharge (in minutes): 40 Diagnosis - Discharge Diagnosis (1) Dysfunctional uterine bleeding Status: Acute Comment: see hospital course (2) Anemia Status: Acute Comment: see hospital course Hospital Course - Lab Results Lab Results: Most Recent Lab Values WBC 5.5 K/uL (4.8-10.8) 04/03/17 07:23 RBC 4.19 Mil/uL (3.80-5.20) 04/03/17 07:23 Hgb 6.7 g/dL (11.0-16.0) L 04/03/17 07:23 Hct 23.6 % (34.0-47.0) L 04/03/17 07:23 MCV 56.3 fL (81.0-99.0) L 04/03/17 07:23 MCH 16.0 pg (27.0-31.0) L 04/03/17 07:23 MCHC 28.4 g/dL (33.0-37.0) L 04/03/17 07:23 RDW 19.6 % (11.5-14.5) H 04/03/17 07:23 Plt Count 250 K/uL (130-400) 04/03/17 07:23 MPV 9.1 fL (7.2-11.7) 04/03/17 07:23 Neut % (Auto) 42.0 % (50.0-75.0) L 04/03/17 07:23 Lymph % (Auto) 45.2 % (20.0-40.0) H 04/03/17 07:23 [place] % (Auto) 10.3 % (0.0-10.0) H 04/03/17 07:23 Eos % (Auto) 1.9 % (0.0-4.0) 04/03/17 07:23 Baso % (Auto) 0.6 % (0.0-2.0) 04/03/17 07:23 Neut # 2.3 K/uL (1.8-7.0) 04/03/17 07:23 Lymph # 2.5 K/uL (1.0-4.3) 04/03/17 07:23 [place] # 0.6 K/uL (0.0-0.8) 04/03/17 07:23 Eos # 0.1 K/uL (0.0-0.7) 04/03/17 07:23 Baso # 0.0 K/uL (0.0-0.2) 04/03/17 07:23 Sodium 138 mmol/L (132-148) 04/03/17 07:23 Potassium 3.8 mmol/L (3.6-5.2) 04/03/17 07:23 Chloride 104 mmol/L (98-107) 04/03/17 07:23 Carbon Dioxide 25 mmol/L (22-30) 04/03/17 07:23 Anion Gap 13 (10-20) 04/03/17 07:23 BUN 9 mg/dL (7-17) 04/03/17 07:23 Creatinine 0.7 MG/DL (0.7-1.2) 04/03/17 07:23 Est GFR ( Amer) > 60 04/03/17 07:23 Est GFR (Non-Af Amer) > 60 04/03/17 07:23 Random Glucose 80 mg/dL (65-105) 04/03/17 07:23 Hemoglobin A1c 5.9 % (4.2-6.5) 04/03/17 00:11 Calcium 8.3 mg/dl (8.6-10.4) L 04/03/17 07:23 Phosphorus 3.5 mg/dL (2.5-4.5) 04/03/17 07:23 Magnesium 2.0 mg/dL (1.6-2.3) 04/03/17 07:23 Iron 32 ug/dL (37-170) L 04/03/17 00:11 TIBC 439 ug/dL (250-450) 04/03/17 00:11 % Saturation 7 (20-55) L 04/03/17 00:11 Ferritin 6.3 ng/mL 04/03/17 00:11 Total Bilirubin 0.6 mg/dL (0.2-1.3) 04/03/17 07:23 Direct Bilirubin 0.5 mg/dL (0.0-0.4) H 04/03/17 00:11 AST 22 U/L (14-36) 04/03/17 07:23 ALT 22 U/L (9-52) 04/03/17 07:23 Alkaline Phosphatase 61 U/L (38-126) 04/03/17 07:23 Total Protein 6.6 g/dL (6.3-8.3) 04/03/17 07:23 Albumin 3.3 g/dL (3.5-5.0) L 04/03/17 07:23 Globulin 3.2 gm/dL (2.2-3.9) 04/03/17 07:23 Albumin/Globulin Ratio 1.0 (1.0-2.1) 04/03/17 07:23 Triglycerides 53 mg/dL (0-149) D 04/03/17 00:11 Cholesterol 147 mg/dL (0-199) 04/03/17 00:11 LDL Cholesterol Direct 69 mg/dL (0-129) 04/03/17 00:11 HDL Cholesterol 58 mg/dL (30-70) 04/03/17 00:11 Vitamin B12 424 pg/mL (239-931) 04/03/17 00:11 25-OH Vitamin D Total 24.5 NG/ML (30.0-100.0) L 04/03/17 00:11 Folate 18.4 ng/mL 04/03/17 00:11 Free T4 1.21 ng/dL (0.78-2.19) 04/03/17 00:11 TSH 3rd Generation 2.79 mIU/L (0.46-4.68) 04/03/17 00:11 Urine Color Straw (YELLOW) 04/02/17 20:40 Urine Clarity Hazy (Clear) 04/02/17 20:40 Urine pH 5.0 (5.0-8.0) 04/02/17 20:40 Ur Specific [place] 1.003 (1.003-1.030) 04/02/17 20:40 Urine Protein Negative mg/dL (NEGATIVE) 04/02/17 20:40 Urine Glucose (UA) Normal mg/dL (Normal) 04/02/17 20:40 Urine Ketones Negative mg/dL (NEGATIVE) 04/02/17 20:40 Urine Blood Negative (NEGATIVE) 04/02/17 20:40 Urine Nitrate Negative (NEGATIVE) 04/02/17 20:40 Urine Bilirubin Negative (NEGATIVE) 04/02/17 20:40 Urine Urobilinogen Normal mg/dL (0.2-1.0) 04/02/17 20:40 Ur Leukocyte Esterase 3+ [place]ibel/uL (Negative) H 04/02/17 20:40 Urine WBC (Auto) 24 /hpf (0-5) H 04/02/17 20:40 Urine RBC (Auto) 14 /hpf (0-3) H 04/02/17 20:40 Ur Squamous Epith Cells 8 /hpf (0-5) H 04/02/17 20:40 Urine Bacteria Mod (<OCC) H 04/02/17 20:40 Urine HCG, Qual Negative (NEGATIVE) 04/02/17 20:40 Stool Occult Blood Negative (NEGATIVE) 04/02/17 21:50 Blood Type A POSITIVE 04/02/17 21:41 Antibody Screen Negative 04/02/17 21:41 - Hospital Course Hospital Course: 41F with PMHx Vertigo, HTN, HLD, DM - presents c/o a syncopal episode yesterday 04/01, with persistent headache, light headedness, and dizziness since syncopizing. She was cleaning her friends apartment, felt very dizzy upon standing, and 1 minute later began to feel lightheaded/weak, causing her to "faint." Her friend witnessed this, told her she was unresponsive for 2-3 minutes, and did not seize, shake, or hit her head. After awakening, she had a headache, lightheadedness, and dizziness, all which have persisted. At that time she was not diaphoretic and did not feel as if the room was spinning. This morning, she began to feel nauseous due to the dizziness. 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 She denies change in vision, impaired speech, seizure, confusion, f/c, trauma, diaphoresis, chest pain, palpitations, SOB, vomiting, d/c, recent travel or sick contacts. She also c/o persistent burning with urination for 1 month, treated by her physical science aide at that time with antibiotics, however it is unresolved. She denies frequent or recurrent UTI's. Her LMP was 03/08/17 and she reports a history of heavy flow. Patient was admitted for syncopal episode, DUB, and anemia. Patient is a Jehovah witness so he refused all transfusions. Hemoglobin was found to be 7.1. She was complaining of Dysuria for 1month, however no suprapubic tenderness so UA was done. UA revealed 3+leuk est, 24WBC, 14RBC, 8sq epithelial cells, and bact moderate. Rocephin was ordered. CT head was negative. The next day, CT Abd/ Pelv revealed Rounded hyperdense structure in the endometrial cavity as above that could be better evaluated with pelvic ultrasound (see full report). ROTARY DRUM DYER was consulted. They said that there was no bleeding currently. WHite discharge was noticed so dose of Diflucan was given. Ferrlicet sulfate IV was given for anemia. Patient was stable and asymptomatic with no evidence of bleeding. Since she was refusing transfusions, it was determined that work up and treatment could be as outpatient. On 04/03, she was cleared by structural mill supervisor and deemed medically stable for discharge by Dr. Morales. She was sent home with Ciprofloxacin, Colace, and ferrous sulfate. She was instructed to follow up with PMD, ROTARY DRUM DYER, and heme/ onc within 1 week. This is a summary of the hospital course. Please refer to EMR for more specific details. Discharge Plan - Discharge Medications Prescriptions: Ciprofloxacin [Cipro] 500 mg PO BID #14 tab Docusate Sodium [Colace] 100 mg PO TID #90 capsule Ferrous Sulfate [Feosol] 325 mg PO TID #90 tab - Follow Up Plan Condition: STABLE Disposition: HOME/ ROUTINE Instructions: Ciprofloxacin (By mouth), Iron Supplements (By mouth), Laxative, Stool Softeners (By mouth), Heart Healthy Diet (DC), Syncope (DC), Dizziness ( GEN), Anemia (DC) Additional Instructions: Patient medically stable for discharge to home by Dr. Morales. Patient to take new medications Ciprofloxacin 500 mg twice per day for 7 days, Feosol 325 mg three times per day and Colace 100 mg by mouth three times per day. Patient is to follow up with PMD (Dr. Morales), Heme/Onc (Dr. Hreiberto Schmitt) and ROTARY DRUM DYER (Dr. Mahan) within 1 week of discharge. Patient may resume physical activity as tolerated. Please return to ER if symptoms persist or condition worsens. All instructions stated above were discussed in detail with patient. She verbalized understanding and agreement. Referrals: Calderon Morales Jr., MD [Medical Doctor] - Estefani Mahan MD [Staff Provider] - Heriberto Schmitt MD [Staff Provider] -
--- NOTE | 2017-04-04 17:15 | CARD ---
APPROVED REPORT EKG Measurement Heart [id number] <Conclusion> Normal sinus rhythm
== END 2017-04-03 19:00 | disposition home or self-care (01) | DRG 141 ==
LOC: C.ER 19:37 → C.9E 22:44 → C.6T 23:30
PROVIDERS: ADMIT Internal Medicine; ATTEND Internal Medicine
DX: R55 Syncope and collapse (principal); D50.0 Iron deficiency anemia secondary to blood loss (chronic); N93.8 Other specified abnormal uterine and vaginal bleeding; B37.3 Candidiasis of vulva and vagina; I10 Essential (primary) hypertension; E11.9 Type 2 diabetes mellitus without complications; R42 Dizziness and giddiness; E78.5 Hyperlipidemia, unspecified; Z53.1 Procedure and treatment not carried out because of patient's decision for reasons of belief and group pressure; Z87.01 Personal history of pneumonia (recurrent); Z90.49 Acquired absence of other specified parts of digestive tract

== ENCOUNTER 2017-07-10 06:53 | Day surgery (SDC) | payer MEDICAID ==
[2017-07-10] MEDS ORDERED: Propofol 10 mg/ml Inj (20 ML) ONE (08:34)
[2017-07-10] MEDS ORDERED: Lactated Ringer's 500 ML IV ONE (08:39)
[2017-07-10] MEDS ORDERED: Lactated Ringer's 500 ML IV SCH (08:45)
[2017-07-10 13:31] VITALS: TEMP 97.2
[2017-07-10 13:32] VITALS: O2SAT 99
[2017-07-10 13:38] VITALS: BP 117/76; PULSE 58; RESP 15
== END 2017-07-10 10:40 | disposition home or self-care (01) ==
LOC: C.ENDO 06:53
PROVIDERS: ATTEND Internal Medicine Gastroenterology
DX: K29.50 Unspecified chronic gastritis without bleeding (principal); R10.13 Epigastric pain; Z98.84 Bariatric surgery status
CPT/HCPCS: 43239; 84703; 88305; J2704; J3010; J7120

== ENCOUNTER 2017-08-19 08:59 | Emergency (ER) | payer MEDICAID ==
[2017-08-19 08:59] VITALS: BMI 38.4
[2017-08-19 09:13] VITALS: TEMP 98.1
--- NOTE | 2017-08-19 09:41 | C.PDOC ---
History Of Present Illness 41 year old female presents to the ED with complaints of pain to the upper left arm beginning yesterday. Patient notes pain is exacerbated by movement of the arm and took two Ibuprofen tablets with minimal relief. She denies numbness, weakness, swelling, or trauma. Time Seen by Provider: 08/19/17 09:21 Chief Complaint (Nursing): Upper Extremity Problem/Injury History Per: Patient History/Exam Limitations: no limitations Onset/Duration Of Symptoms: Hrs (beginning yesterday ) Current Symptoms Are (Timing): Still Present Quality: "Pain" Exacerbating Factor(s): Movement Recent travel outside of the [place]: No Past Medical History Reviewed: Historical Data, Nursing Documentation, Vital Signs Vital Signs: Last Vital Signs Temp 98.1 F 08/19/17 09:10 Pulse 79 08/19/17 09:57 Resp 18 08/19/17 09:57 BP 132/78 08/19/17 09:57 Pulse Ox 100 08/19/17 13:19 - Medical History PMH: Anemia, Gastritis, HTN (PT HAD HYPERTENSION), Hypercholesterolemia (PT HAD HIGH CHOLESTEROL), Pneumonia (jan 2014 never hospitalized) Surgical History: Cholecystectomy, Endoscopy Denies: Pacemaker - [facility] Procedures ESOPHAGOGASTRODUODENOSCOPY [EGD] W/CLOSED BIOPSY (03/30/14) LAPAROSCOPIC GASTROENTEROSTOMY (08/10/14) NEBULIZER THERAPY (03/30/14) OTHER GASTROSCOPY (08/10/14) Family History: States: Other Other Family History: Non-contributory. - Social History Hx Tobacco Use: No Hx Alcohol Use: No Hx Substance Use: No - Immunization History Hx Tetanus Toxoid Vaccination: Yes Hx Influenza Vaccination: No Hx Pneumococcal Vaccination: Yes Review Of Systems Except As Marked, All Systems Reviewed And Found Negative. Constitutional: Negative for: Fever Neurological: Negative for: Weakness, Numbness Physical Exam - Physical Exam Appears: Non-toxic, No Acute Distress Skin: Warm, Dry Head: Atraumatic Neck: Normal ROM, Supple Extremity: Normal ROM (full ROM of the left shoulder, pain with abduction of left shoulder), Tenderness (lateral aspect of left upper arm ), Capillary Refill (good capillary refill, less than two seconds ), No Swelling Pulses: Left Radial: Normal, Right Radial: Normal Neurological/Psych: Oriented x3, Normal Motor, Normal Sensation ED Course And Treatment O2 Sat by Pulse Oximetry: 100 (room air ) Progress Note: Patient was given Toradol. Disposition - Disposition Referrals: Calderon Morales Jr., MD [Medical Doctor] - Disposition: HOME/ ROUTINE Disposition Time: 10:09 Condition: STABLE Additional Instructions: Please follow up with your doctor. Take medication as directed for the next few days. Return to the ER for any worsening symptoms or for any other concerns. Prescriptions: Acetaminophen [Tylenol Extra Strength] 1,000 mg PO Q6H PRN #12 tablet PRN Reason: Pain, Moderate (4-7) Naproxen [Naprosyn] 500 mg PO Q12H PRN #10 tablet PRN Reason: Pain, Moderate (4-7) Forms: Gen Discharge Inst Czech, [employer] [facility] (Lao) - Clinical Impression Clinical Impression: Arm pain - Scribe Statement The provider has reviewed the documentation as recorded by the Scribe Berenice Avalos All medical record entries made by the Scribe were at my direction and personally dictated by me. I have reviewed the chart and agree that the record accurately reflects my personal performance of the history, physical exam, medical decision making, and the department course for this patient. I have also personally directed, reviewed, and agree with the discharge instructions and disposition.
[2017-08-19 09:58] VITALS: BP 132/78; PULSE 79; RESP 18
[2017-08-19 11:45] VITALS: O2SAT 100
== END 2017-08-19 10:09 | disposition home or self-care (01) ==
LOC: C.ER 08:59
DX: M79.622 Pain in left upper arm (principal)
CPT/HCPCS: 96372; 99283; J1885

== ENCOUNTER 2018-01-13 08:44 | Emergency (ER) | payer MEDICAID ==
[2018-01-13 08:45] VITALS: BMI 38.4
[2018-01-13 10:14] LABS: SQUAMOUS EPITHIAL 32 /hpf (0-5); URINE BACTERIA OCC (<OCC); URINE BILIRUBIN NEGATIVE (NEGATIVE); URINE BLOOD 3+ (NEGATIVE); URINE CLARITY Hazy (Clear); URINE COLOR Yellow (YELLOW); URINE GLUCOSE (UA) NORMAL (Normal); URINE LEUKOCYTE ESTERASE 2+ Leu/uL (Negative); URINE NITRATE NEGATIVE (NEGATIVE); URINE PROTEIN 2+ mg/dL (NEGATIVE); URINE UROBILINOGEN NORMAL mg/dL (0.2-1.0)
--- NOTE | 2018-01-13 10:43 | C.PDOC ---
History Of Present Illness 42 y/o F p/w gross hematuria with dysuria since last night. Denies fever, vomiting, dyspnea, flank pain, vaginal bleeding. Time Seen by Provider: 01/13/18 09:17 Chief Complaint (Nursing): Female Genitourinary Past Medical History Vital Signs: Last Vital Signs Temp 97.7 F 01/13/18 10:51 Pulse 83 01/13/18 10:51 Resp 16 01/13/18 10:51 BP 139/90 01/13/18 10:51 Pulse Ox 97 01/13/18 10:51 - Medical History PMH: Anemia, Gastritis, HTN (PT HAD HYPERTENSION), Hypercholesterolemia (PT HAD HIGH CHOLESTEROL), Pneumonia (jan 2014 never hospitalized) Denies: Chronic Kidney Disease Surgical History: Cholecystectomy, Endoscopy Denies: Pacemaker - [facility] Procedures ESOPHAGOGASTRODUODENOSCOPY [EGD] W/CLOSED BIOPSY (03/30/14) LAPAROSCOPIC GASTROENTEROSTOMY (08/10/14) NEBULIZER THERAPY (03/30/14) OTHER GASTROSCOPY (08/10/14) Family History: States: Unknown Family Hx - Social History Hx Tobacco Use: No Hx Alcohol Use: No Hx Substance Use: No - Immunization History Hx Tetanus Toxoid Vaccination: Yes Hx Influenza Vaccination: No Hx Pneumococcal Vaccination: Yes Review Of Systems Except As Marked, All Systems Reviewed And Found Negative. Constitutional: Negative for: Fever Respiratory: Negative for: Shortness of Breath Physical Exam - Physical Exam Additional Physical Exam Comments: Gen: NAD Head: NC/AT Eyes: PERRL ENT: MMM Neck: Supple Chest: No tenderness CV: Regular rate Lungs: CTA b/l Abd: Soft, suprapubic tenderness Skin: No rash Back: No CVA tenderness Extremities: FROM x 4. No swelling or deformity Neuro: Alert, no focal deficit ED Course And Treatment O2 Sat by Pulse Oximetry: 100 Medical Decision Making Medical Decision Making: UA shows UTI. Culture sent. Started on treatment. F/u PMD, return to ED for worsening pain, fever, chills, vomiting, dyspnea. Disposition - Disposition Referrals: Calderon Morales Jr., MD [Medical Doctor] - Disposition: HOME/ ROUTINE Disposition Time: 10:42 Condition: STABLE Prescriptions: Nitrofurantoin Macrocrystals [Macrobid] 100 mg PO BID #20 cap Phenazopyridine [Pyridium] 1 tab PO Q8 #6 tab Instructions: Urinary Tract Infection in Women (ED) Forms: Work/School/Gym Excuse, [facility] ([place]) - Clinical Impression Clinical Impression: UTI (urinary tract infection)
[2018-01-13 10:53] VITALS: BP 139/90; PULSE 83; RESP 16; TEMP 97.7
[2018-01-13 12:29] VITALS: O2SAT 100
== END 2018-01-13 10:51 | disposition home or self-care (01) ==
LOC: C.ER 08:44
DX: N39.0 Urinary tract infection, site not specified (principal); I10 Essential (primary) hypertension; E78.00 Pure hypercholesterolemia, unspecified

== ENCOUNTER 2019-01-09 04:26 | Emergency (ER) | payer SELFPAY, MEDICAID | END 2019-01-09 10:01 | disposition home or self-care (01) | LOC: C.ER 04:26 ==

== ENCOUNTER 2019-02-11 11:01 | Emergency (ER) | payer MEDICAID, OTHER ==
[2019-02-11 11:09] VITALS: BMI 26.2
[2019-02-11 11:12] VITALS: BP 131/92; PULSE 105; RESP 18; TEMP 98.5; O2SAT 100
[2019-02-11] MEDS ORDERED: Sodium Chloride 0.9% 1,000 ML IV ONE (12:02)
--- NOTE | 2019-02-11 12:13 | C.PDOC ---
History Of Present Illness 43 year old female presents to the ED for evaluation of lower abdominal pain which began around 3 days ago. Patient reports she is currently on her period, and reports experiencing a similar pain during her period in the past. Patient reports history of fibroids, states she has not followed up with [facility]. She took some Tylenol for her pain, without relief. Patient also reports slight painful urination. Otherwise, she denies fever, chills, diarrhea, or constipation. Time Seen by Provider: 02/11/19 11:19 Chief Complaint (Nursing): Female Genitourinary History Per: Patient History/Exam Limitations: no limitations Onset/Duration Of Symptoms: Days (3) Current Symptoms Are (Timing): Still Present Location Of Pain/Discomfort: Other (lower abdomen ) Quality Of Discomfort: "Pain" Associated Symptoms: Urinary Symptoms (slight painful urination ). denies: Fever, Chills Additional History Per: Patient Last Menstral Period: current Past Medical History Reviewed: Historical Data, Nursing Documentation, Vital Signs Vital Signs: Last Vital Signs Temp 98.5 F 02/11/19 11:09 Pulse 105 H 02/11/19 11:09 Resp 18 02/11/19 11:09 BP 131/92 H 02/11/19 11:09 Pulse Ox 100 02/11/19 11:09 - Medical History PMH: Anemia, Gastritis, HTN (PT HAD HYPERTENSION), Hypercholesterolemia (PT HAD HIGH CHOLESTEROL), Pneumonia (jan 2014 never hospitalized) Denies: Chronic Kidney Disease Surgical History: Cholecystectomy, Endoscopy Denies: Pacemaker - [facility] Procedures ESOPHAGOGASTRODUODENOSCOPY [EGD] W/CLOSED BIOPSY (03/30/14) LAPAROSCOPIC GASTROENTEROSTOMY (08/10/14) NEBULIZER THERAPY (03/30/14) OTHER GASTROSCOPY (08/10/14) Family History: States: Unknown Family Hx - Social History Hx Tobacco Use: No Hx Alcohol Use: No Hx Substance Use: No - Immunization History Hx Tetanus Toxoid Vaccination: Yes Hx Influenza Vaccination: No Hx Pneumococcal Vaccination: No Review Of Systems Constitutional: Negative for: Fever, Chills Gastrointestinal: Positive for: Abdominal Pain (lower abdomen ). Negative for: Diarrhea, Constipation Genitourinary: Positive for: Dysuria Physical Exam - Physical Exam Appears: Non-toxic, No Acute Distress, Other (resting comfortably ) Skin: Normal Color, Warm, Dry Head: Atraumatic, Normacephalic Eye(s): bilateral: Normal Inspection Oral Mucosa: Moist Neck: Supple Chest: Symmetrical, No Deformity, No Tenderness Cardiovascular: Rhythm Regular, No Murmur, Other (tachycardic ) Respiratory: Normal Breath Sounds, No Rales, No Rhonchi, No Wheezing Gastrointestinal/Abdominal: Soft, Tenderness (suprapubic ), No Mass, No Guarding, No Rebound Extremity: Normal ROM, No Pedal Edema, Capillary Refill (less than 2 seconds ) Neurological/Psych: Oriented x3, Normal Speech, Normal Cognition ED Course And Treatment - Laboratory Results Result Diagrams: 02/11/19 12:35 02/11/19 12:35 O2 Sat by Pulse Oximetry: 100 (on RA) Pulse Ox Interpretation: Normal Progress Note: Bloodwork and urinalysis ordered and reviewed. IV Fluids given. Disposition Counseled Patient/Family Regarding: Diagnosis, Need For Followup, Rx Given - Disposition Referrals: [facility] at [facility] [Outside] Disposition: HOME/ ROUTINE Disposition Time: 13:25 Condition: STABLE Additional Instructions: FOLLOW UP WITH [facility] WITHIN 1 WEEK USE MEDICATION FOR PAIN NEEDED, AND TAKE IBUPROFEN WITH FOOD RETURN TO ER IF SYMPTOMS WORSEN Prescriptions: Ibuprofen [Motrin Tab] 600 mg PO Q6 PRN #30 tab PRN Reason: fever/pain Instructions: Menstrual Cramps (DC) Forms: [employer] (German) Print Language: ALBANIAN - Clinical Impression Clinical Impression: Dysmenorrhea, Anemia - Scribe Statement The provider has reviewed the documentation as recorded by the Scribe (Francoise Vale) Provider Attestation: All medical record entries made by the Scribe were at my direction and personal ly dictated by me. I have reviewed the chart and agree that the record accurately reflects my personal performance of the history, physical exam, medical decision making, and the department course for this patient. I have also personally directed, reviewed, and agree with the discharge instructions and disposition.
[2019-02-11] MEDS ORDERED: Sodium Chloride 0.9% 1,000 ML ONE (12:16)
[2019-02-11 12:40] LABS: BASO % 0.5 % (0.0-2.0); EOS # 0.1 K/uL (0.0-0.7); EOS % 1.2 % (0.0-4.0); HEMOGLOBIN 10.1 g/dL (11.0-16.0); LYMPH # 1.5 K/uL (1.0-4.3); LYMPH % 25.3 % (20.0-40.0); MEAN CORPUSCULAR HEMOGLOBIN 19.7 pg (27.0-31.0); MEAN CORPUSCULAR HGB CONC 29.6 g/dL (33.0-37.0); MEAN PLATELET VOLUME 9.1 fL (7.2-11.7); MONO # 0.4 K/uL (0.0-0.8); MONO % 6.4 % (0.0-10.0); NEUT % 66.6 % (50.0-75.0); RBC 5.12 Mil/uL (3.80-5.20); RED CELL DISTRIBUTION WIDTH 23.9 % (11.5-14.5)
[2019-02-11 12:47] LABS: MEAN CELL VOLUME 66.6 fL (81.0-99.0); WHITE BLOOD COUNT 5.9 K/uL (4.8-10.8)
[2019-02-11 12:48] LABS: HCG,QUALITATIVE URINE NEGATIVE (NEGATIVE)
[2019-02-11 12:51] LABS: SQUAMOUS EPITHIAL 1 /hpf (0-5); URINE BACTERIA RARE (<OCC); URINE BILIRUBIN NEGATIVE (NEGATIVE); URINE BLOOD 3+ (NEGATIVE); URINE COLOR Yellow (YELLOW); URINE GLUCOSE (UA) NORMAL (Normal); URINE LEUKOCYTE ESTERASE 1+ Leu/uL (Negative); URINE PROTEIN NEGATIVE (NEGATIVE); URINE UROBILINOGEN NORMAL mg/dL (0.2-1.0)
[2019-02-11 12:53] LABS: URINE CLARITY Hazy (Clear)
[2019-02-11 12:55] LABS: ALB/GLOB RATIO 1.2 (1.0-2.1); ALBUMIN 4.1 g/dL (3.5-5.0); ALT/SGPT 16 U/L (9-52); AST/SGOT 24 U/L (14-36); BLOOD UREA NITROGEN 8 mg/dL (7-17); CALCIUM 9.1 mg/dl (8.6-10.4); GFR NON-AFRICAN AMERICAN > 60
== END 2019-02-11 13:54 | disposition home or self-care (01) ==
LOC: C.ER 11:01
DX: N94.6 Dysmenorrhea, unspecified (principal); D64.9 Anemia, unspecified; E78.00 Pure hypercholesterolemia, unspecified; I10 Essential (primary) hypertension